=== PATIENT | female | born 1990 ===

== ENCOUNTER → 2022-07-14 | Outpatient (REF) | payer OTHER ==
[2022-07-14 17:58] LABS: CREATININE, URINE 15.1 MG/DL
[2022-07-14 18:00] LABS: MALB URINE SIEMENS < 3.0 MG/L; MAU/CREAT RATIO 19.8 MCG/MG (0.0-30.0)
== END ==
LOC: M LAB REF 17:09
PROVIDERS: ATTEND Nurse Practitioner Family
DX: E10.65 Type 1 diabetes mellitus with hyperglycemia (principal)